=== PATIENT | male | born 1980 | race Two or more races ===

== ENCOUNTER → 2017-07-05 | Emergency (ER) | payer OTHER ==
[~2017-07-05] VITALS: Ht 177.8 cm; Wt 113.4 kg
[~2017-07-05] MED LIST: BUDESONIDE0.5 MG/2 M IH; IPRAT-ALBUT 0.5-3 ML IH; MEDROLPACK PO; TESSALON PERLE100 MG PO
== END | disposition home or self-care (01) ==
LOC: ER 04:11
DX: J45.998 Other asthma (principal)

== ENCOUNTER 2017-09-11 19:44 | Emergency (ER) | payer OTHER ==
[~2017-09-11] VITALS: Ht 177.8 cm; Wt 108.9 kg
== END 2017-09-12 02:02 | disposition home or self-care (01) ==
LOC: ER 19:44
DX: K52.89 Other specified noninfective gastroenteritis and colitis (principal)